=== PATIENT | male | born 1945 | race Caucasian/White ===

== ENCOUNTER 2018-12-19 09:57 | Day surgery (SDC) | payer MEDICARE, OTHER ==
[~2018-12-19 09:57] MED LIST: BALANCED SALT IRRIG SOLN COMB2 15 ML BOTTLE ONE; BUPIVACAINE HCL 0.75% INJ/PF (7.5 MG/1 ML) 10 ML SDV ONE; LIDOCAINE 2%/EPINEPHRINE INJ 20 ML VIAL ONE; NEO/POLYMYX B SULF/DEXAMETH OPH OINTMENT 3.5 GM ONE; POVIDONE-IODINE 5% OPH PREP SOLN 30 ML ONE; TETRACAINE HCL 0.5% OPH SOLN 4 ML ONE; THROMBIN (BOVINE) TOPICAL 5000 UNIT VIAL ONE
[2018-12-19] MEDS ORDERED: MIDAZOLAM 2 MG/2 ML INJ ONE (11:22)
[2018-12-19] MEDS ORDERED: PROPOFOL INJ 200 MG/20 ML VIAL IV ONE (11:23)
[2018-12-19] MEDS ORDERED: FENTANYL CITRATE INJ/PF 100 MCG/2 ML AMPUL ONE (11:23)
--- NOTE | 2018-12-20 10:24 | [facility] OPERATIVE REPORT E ---
[facility] Operative Report NAME: RICKY NARAYAN AGE: 73Y DATE OF SURGERY: 12/19/2018 ROOM: PREOPERATIVE DIAGNOSIS: Dermatochalasis of the bilateral upper lids. POSTOPERATIVE DIAGNOSIS: Dermatochalasis of the bilateral upper lids. OPERATION: Bilateral upper lid blepharoplasty of both eyes. SURGEON: MARANDA CARRERO M.D. ANESTHESIA: Topical with 2% lidocaine with epi injected into both upper lids. BLOOD LOSS: Less than 10 mL. DESCRIPTION OF OPERATIVE REPORT: After obtaining appropriate informed consent and establishing that this was a functional blepharoplasty, the patient was having significant blocking of their vision due to their skin hanging over their vision, which was confirmed on photos and visual field testing. The patient was brought back to the operating room where the lids were cleaned with Betadine and sterile precautions were taken. Following this, the lid crease was marked with a lid marker at approximately 8 mm above the lid lash on both eyes and this was drawn out to excise the appropriate amount of skin, being careful not to remove too much. Following the skin markings on both upper lids, 2% lidocaine with epi was injected into the lids for anesthesia. Following this, a 15-blade was used to excise the skin along the markings with forceps. Bleph scissors were then used to remove the skin and a portion of the orbicularis in the same region. Cautery was used to achieve hemostasis and thrombin-soaked sponges were applied. Once hemostasis was achieved, a 6-0 silk suture was used to approximate the wound margins going skin, orbicularis skin in a simple interrupted fashion. Two sutures were placed on both upper lids. Following this, a running 6-0 nylon suture was used to approximate skin to skin. The skin was well opposed and the appropriate amount of skin was removed. Following this, Maxitrol ointment was applied to the lids and the patient was brought back to recovery where ice was applied for 15 minutes. The patient tolerated the procedure well. DICTATING PHYSICIAN: MARANDA CARRERO M.D. [id number] PHY#: [id number] ID: [id number] JOB#: [id number] ACCT: [id number] cc:MARANDA CARRERO M.D. >
--- NOTE | 2018-12-20 10:29 | [facility] DISCHARGE SUMMARY E ---
[facility] Discharge Summary NAME: RICKY NARAYAN AGE: 73Y ADMITTED: 12/19/2018 DISCHARGED: 12/19/2018 HISTORY: This is a 73-year-old male who underwent functional blepharoplasty of the bilateral upper lids. DIAGNOSIS: Dermatochalasis of the upper lids. HOSPITAL COURSE: The patient underwent surgery because he was having difficulty seeing and his lids were tired by the end of the day, having to hold them open, and he had to turn his head to see things off to the side. DISCHARGE INSTRUCTIONS: He is to be on a regular diet. No bending at his waist. No heavy lifting. He should use ice 15 minutes for the first hour for the first 4 hours followed by 4 times daily after that. He should apply Maxitrol to his lids twice a day, and I will see him back for a 1 week postop to remove his sutures. The patient will call back sooner if they have any concerns. DICTATING PHYSICIAN: MARANDA CARRERO M.D. [id number] PHY#: [id number] ID: [id number] JOB#: [id number] ACCT: [id number] cc:MARANDA CARRERO M.D. >
== END 2018-12-19 14:00 | disposition home or self-care (01) ==
LOC: SC 09:57
PROVIDERS: ATTEND Internal Medicine
DX: H02.831 Dermatochalasis of right upper eyelid (principal); H02.834 Dermatochalasis of left upper eyelid; H40.013 Open angle with borderline findings, low risk, bilateral; E11.9 Type 2 diabetes mellitus without complications; E03.9 Hypothyroidism, unspecified; I10 Essential (primary) hypertension; Z85.828 Personal history of other malignant neoplasm of skin; Z79.899 Other long term (current) drug therapy; Z79.84 Long term (current) use of oral hypoglycemic drugs
CPT/HCPCS: 15823; 82962; J2250; J3490 ×7; J3010; J2704; 103